=== PATIENT | male | born 1945 | race Two or more races ===

== ENCOUNTER → 2017-08-26 | Outpatient (CLI) | payer OTHER ==
[2017-08-26 09:33] LABS: Basophils # (auto) 0.1 uL; Basophils % (auto) 1.4 % (0.0-2.0); Eosinophils # (auto) 1.3 uL; Eosinophils % (auto) 13.6 % (0.0-7.0); Hematocrit 46.8 % (41.0-53.0); Hemoglobin 16.1 g/dL (13.5-17.5); Lymphocytes # (auto) 1.5 uL; Mean Corpuscular Hemoglobin 33.2 pg (28.0-32.0); Mean Corpuscular Hgb Conc. 34.5 g/dL (32.0-36.0); Mean Corpuscular Volume 96.4 fL (80.0-100.0); Monocytes # (auto) 0.6 uL; Monocytes % (auto) 6.7 % (0.0-12.0); Neutrophils % (auto) 62.3 % (37.0-80.0); Platelet Count (auto) 239 10^3/uL (140-450); Red Blood Cells 4.85 10^6/uL (4.5-5.90); Red Cell Distribution Width 12.7 % (11.8-14.3); White Blood Cell 9.6 10^3/uL (4.4-10.8)
[2017-08-26 09:53] LABS: Urine Bacteria NONE SEEN /hpf (None Seen); Urine Blood Negative /uL (Negative); Urine Specific Gravity 1.007 (1.001-1.035); Urine WBC 1 /hpf (0 - 3)
[2017-08-26 10:01] LABS: Albumin 3.8 g/dL (3.4-5.0); BUN/Creatinine Ratio 13.3; Bilirubin, Total 0.8 mg/dL (0.2-1.0); Calcium 9.1 mg/dL (8.5-10.1); Total Protein 8.1 g/dL (6.4-8.2)
== END | disposition home or self-care (01) ==
LOC: LAB 09:01
PROVIDERS: ATTEND Family Medicine
DX: I10 Essential (primary) hypertension (principal); E11.9 Type 2 diabetes mellitus without complications; E03.9 Hypothyroidism, unspecified; E78.00 Pure hypercholesterolemia, unspecified; E66.01 Morbid (severe) obesity due to excess calories; Z79.4 Long term (current) use of insulin
CPT/HCPCS: 36415; 80053; 80061; 81001; 82043; 82306; 82607; 83036; 84443; 85025

== ENCOUNTER → 2018-06-02 | Outpatient (CLI) | payer OTHER ==
[~2018-06-02] MED LIST: AMLO5TAB13 PO; ASPI81TA27 PO; ATEN100T PO; ATOR10TA52 PO; FURO40TA4 PO; GABA-339 PO; LEVO25TA6 PO
[2018-06-02 11:03] LABS: Basophils # (auto) 0.1 uL; Basophils % (auto) 0.8 % (0.0-2.0); Eosinophils % (auto) 9.2 % (0.0-7.0); Hematocrit 43.5 % (41.0-53.0); Hemoglobin 14.8 g/dL (13.5-17.5); Lymphocytes # (auto) 1.4 uL; Lymphocytes % (auto) 13.7 % (10.0-50.0); Mean Corpuscular Hemoglobin 31.8 pg (28.0-32.0); Mean Corpuscular Hgb Conc. 34.1 g/dL (32.0-36.0); Mean Corpuscular Volume 93.3 fL (80.0-100.0); Monocytes # (auto) 0.7 uL; Monocytes % (auto) 7.1 % (0.0-12.0); Neutrophils # (auto) 7.2 uL; Neutrophils % (auto) 69.2 % (37.0-80.0); Nucleated Red Blood Cells % 0.2 %; Platelet Count (auto) 271 10^3/uL (140-450); Red Blood Cells 4.66 10^6/uL (4.5-5.90); Red Cell Distribution Width 14.3 % (11.8-14.3); White Blood Cell 10.5 10^3/uL (4.4-10.8)
[2018-06-02 11:13] LABS: Urine Bacteria FEW /hpf (None Seen); Urine Blood Negative /uL (Negative); Urine WBC 2 /hpf (0 - 3)
[2018-06-02 11:19] LABS: Albumin 3.3 g/dL (3.4-5.0); Calcium 8.6 mg/dL (8.5-10.1); Potassium 3.6 mmol/L (3.5-5.1)
[2018-06-02 11:25] LABS: BUN/Creatinine Ratio 10.8; Bilirubin, Total 0.6 mg/dL (0.2-1.0); Total Protein 7.4 g/dL (6.4-8.2)
[2018-06-02 13:00] LABS: Folate (Folic Acid) > 24.00 ng/mL (5.38-24)
== END | disposition home or self-care (01) ==
LOC: LAB 10:23
PROVIDERS: ATTEND Internal Medicine
DX: I13.0 Hypertensive heart and chronic kidney disease with heart failure and stage 1 through stage 4 chronic kidney disease, or unspecified chronic kidney disease (principal); E11.22 Type 2 diabetes mellitus with diabetic chronic kidney disease; N18.3 Chronic kidney disease, stage 3 (moderate); E03.9 Hypothyroidism, unspecified
CPT/HCPCS: 36415; 80053; 81001; 82043; 82607; 82746; 83036; 84439; 84443; 85025; 86803

== ENCOUNTER 2018-06-12 06:53 | Emergency (ER) | payer OTHER ==
[~2018-06-12] VITALS: Ht 182.9 cm; Wt 137.0 kg
[2018-06-12 07:34] LABS: Basophils # (auto) 0.1 uL; Basophils % (auto) 0.8 % (0.0-2.0); Eosinophils # (auto) 0.9 uL; Hemoglobin 14.9 g/dL (13.5-17.5); Lymphocytes # (auto) 1.3 uL; Mean Corpuscular Hemoglobin 32.2 pg (28.0-32.0); Mean Corpuscular Hgb Conc. 34.6 g/dL (32.0-36.0); Mean Corpuscular Volume 93.2 fL (80.0-100.0); Monocytes # (auto) 0.8 uL; Monocytes % (auto) 8.4 % (0.0-12.0); Neutrophils # (auto) 6.9 uL; Neutrophils % (auto) 68.8 % (37.0-80.0); Nucleated Red Blood Cells % 0.1 %; Platelet Count (auto) 266 10^3/uL (140-450); Red Blood Cells 4.62 10^6/uL (4.5-5.90); Red Cell Distribution Width 14.6 % (11.8-14.3); White Blood Cell 10.1 10^3/uL (4.4-10.8)
[2018-06-12 07:53] LABS: Albumin 3.3 g/dL (3.4-5.0); Calcium 8.7 mg/dL (8.5-10.1); Potassium 3.9 mmol/L (3.5-5.1)
[2018-06-12 07:58] LABS: BUN/Creatinine Ratio 10.2; Bilirubin, Total 0.6 mg/dL (0.2-1.0); Total Protein 7.4 g/dL (6.4-8.2)
[2018-06-12] MEDS ORDERED: FUROSEMIDE 40 MG/4 ML VIAL IV ONE (08:15)
[2018-06-12 09:07] LABS: Urine Bacteria NONE SEEN /hpf (None Seen); Urine Blood Negative /uL (Negative); Urine Specific Gravity 1.012 (1.001-1.035); Urine WBC 1 /hpf (0 - 3)
[2018-06-12 11:58] VITALS: BP 131/82
== END 2018-06-12 12:09 | disposition home or self-care (01) ==
LOC: ER 06:53
DX: I13.0 Hypertensive heart and chronic kidney disease with heart failure and stage 1 through stage 4 chronic kidney disease, or unspecified chronic kidney disease (principal); E11.22 Type 2 diabetes mellitus with diabetic chronic kidney disease; N18.9 Chronic kidney disease, unspecified; M79.89 Other specified soft tissue disorders; I50.9 Heart failure, unspecified; I25.2 Old myocardial infarction; E78.5 Hyperlipidemia, unspecified; Z86.73 Personal history of transient ischemic attack (TIA), and cerebral infarction without residual deficits; Z98.61 Coronary angioplasty status; Z79.899 Other long term (current) drug therapy
CPT/HCPCS: 36415; 71045; 80053; 81001; 83880; 85025; 93005; 93970; 96374; 99284; J1940

== ENCOUNTER → 2018-07-07 | Outpatient (CLI) | payer OTHER ==
[~2018-07-07] VITALS: Ht 182.9 cm; Wt 134.3 kg
[~2018-07-07] MED LIST changes: +ADENOSINE 113 MG in GIVE UN-DILUTED 0 ML IV ONE; +ADENOSINE 90 MG/30 ML INJ IV ONE
== END | disposition home or self-care (01) ==
LOC: Rad HDHVI 07:33
PROVIDERS: ATTEND Internal Medicine Cardiovascular Disease
DX: I25.119 Atherosclerotic heart disease of native coronary artery with unspecified angina pectoris (principal); E11.59 Type 2 diabetes mellitus with other circulatory complications; E11.21 Type 2 diabetes mellitus with diabetic nephropathy; E11.40 Type 2 diabetes mellitus with diabetic neuropathy, unspecified; E11.65 Type 2 diabetes mellitus with hyperglycemia; I13.0 Hypertensive heart and chronic kidney disease with heart failure and stage 1 through stage 4 chronic kidney disease, or unspecified chronic kidney disease; E11.22 Type 2 diabetes mellitus with diabetic chronic kidney disease; I50.9 Heart failure, unspecified; N18.9 Chronic kidney disease, unspecified
CPT/HCPCS: 78452; 93005; 93306; 96374; 96375; A9500; J0153

== ENCOUNTER → 2018-08-12 | Outpatient (CLI) | payer OTHER ==
[~2018-08-12] MED LIST changes: -ADENOSINE 113 MG in GIVE UN-DILUTED 0 ML IV ONE; -ADENOSINE 90 MG/30 ML INJ IV ONE
[2018-08-12 08:37] LABS: Basophils # (auto) 0.1 uL; Eosinophils # (auto) 1.3 uL; Eosinophils % (auto) 13.9 % (0.0-7.0); Hematocrit 40.8 % (41.0-53.0); Hemoglobin 13.9 g/dL (13.5-17.5); Lymphocytes # (auto) 1.4 uL; Lymphocytes % (auto) 15.2 % (10.0-50.0); Mean Corpuscular Hemoglobin 33.4 pg (28.0-32.0); Mean Corpuscular Volume 98.1 fL (80.0-100.0); Monocytes # (auto) 0.8 uL; Neutrophils # (auto) 5.9 uL; Neutrophils % (auto) 61.9 % (37.0-80.0); Platelet Count (auto) 215 10^3/uL (140-450); Red Blood Cells 4.16 10^6/uL (4.5-5.90); Red Cell Distribution Width 14.5 % (11.8-14.3); White Blood Cell 9.5 10^3/uL (4.4-10.8)
[2018-08-12 08:38] LABS: Albumin 3.4 g/dL (3.4-5.0); BUN/Creatinine Ratio 15.5; Calcium 9.3 mg/dL (8.5-10.1); Potassium 4.5 mmol/L (3.5-5.1)
[2018-08-12 08:42] LABS: Bilirubin, Total 0.5 mg/dL (0.2-1.0); Total Protein 7.5 g/dL (6.4-8.2)
[2018-08-12 08:46] LABS: Free T4 (Free Thyroxine) 1.26 ng/dL (0.89-1.76)
[2018-08-12 08:47] LABS: Folate (Folic Acid) > 24.00 ng/mL (5.38-24)
== END | disposition home or self-care (01) ==
LOC: LAB 07:39
PROVIDERS: ATTEND Internal Medicine
DX: E11.22 Type 2 diabetes mellitus with diabetic chronic kidney disease (principal); I13.0 Hypertensive heart and chronic kidney disease with heart failure and stage 1 through stage 4 chronic kidney disease, or unspecified chronic kidney disease; I50.9 Heart failure, unspecified; N18.9 Chronic kidney disease, unspecified
CPT/HCPCS: 36415; 80053; 80061; 82607; 82746; 83036; 84439; 84443; 85025

== ENCOUNTER → 2018-10-09 | Outpatient (CLI) | payer OTHER ==
[~2018-10-09] MED LIST changes: -AMLO5TAB13 PO; +AMLO5TAB15 PO; +ASPI-404 PO; -ASPI81TA27 PO
[2018-10-09 08:08] LABS: Basophils # (auto) 0.1 uL; Basophils % (auto) 1.3 % (0.0-2.0); Eosinophils # (auto) 1.2 uL; Hematocrit 44.1 % (41.0-53.0); Lymphocytes # (auto) 1.1 uL; Lymphocytes % (auto) 12.3 % (10.0-50.0); Mean Corpuscular Hemoglobin 33.3 pg (28.0-32.0); Mean Corpuscular Volume 97.9 fL (80.0-100.0); Monocytes # (auto) 0.7 uL; Neutrophils # (auto) 5.6 uL; Neutrophils % (auto) 64.4 % (37.0-80.0); Platelet Count (auto) 234 10^3/uL (140-450); Red Cell Distribution Width 13.2 % (11.8-14.3); White Blood Cell 8.7 10^3/uL (4.4-10.8)
[2018-10-09 09:21] LABS: Calcium 9.4 mg/dL (8.5-10.1); Potassium 4.9 mmol/L (3.5-5.1)
[2018-10-09 09:26] LABS: BUN/Creatinine Ratio 17.2
== END | disposition home or self-care (01) ==
LOC: LAB 07:22
PROVIDERS: ATTEND Internal Medicine
DX: I13.0 Hypertensive heart and chronic kidney disease with heart failure and stage 1 through stage 4 chronic kidney disease, or unspecified chronic kidney disease (principal); E11.22 Type 2 diabetes mellitus with diabetic chronic kidney disease; N18.9 Chronic kidney disease, unspecified; I50.9 Heart failure, unspecified
CPT/HCPCS: 36415; 80048; 83036; 85025

== ENCOUNTER → 2018-11-10 | Outpatient (CLI) | payer OTHER ==
[2018-11-10 08:48] LABS: Basophils # (auto) 0.1 uL; Basophils % (auto) 0.9 % (0.0-2.0); Eosinophils # (auto) 1.4 uL; Eosinophils % (auto) 12.5 % (0.0-7.0); Hematocrit 43.6 % (41.0-53.0); Hemoglobin 14.7 g/dL (13.5-17.5); Lymphocytes # (auto) 1.4 uL; Lymphocytes % (auto) 12.9 % (10.0-50.0); Mean Corpuscular Hemoglobin 33.2 pg (28.0-32.0); Mean Corpuscular Hgb Conc. 33.8 g/dL (32.0-36.0); Mean Corpuscular Volume 98.5 fL (80.0-100.0); Monocytes # (auto) 0.8 uL; Monocytes % (auto) 6.8 % (0.0-12.0); Neutrophils # (auto) 7.3 uL; Neutrophils % (auto) 66.9 % (37.0-80.0); Nucleated Red Blood Cells % 0.1 %; Platelet Count (auto) 256 10^3/uL (140-450); Red Blood Cells 4.43 10^6/uL (4.5-5.90); Red Cell Distribution Width 13.6 % (11.8-14.3)
[2018-11-10 08:52] LABS: Urine Blood Negative /uL (Negative); Urine Specific Gravity 1.011 (1.001-1.035)
[2018-11-10 09:41] LABS: Creatinine, Urine 76 mg/dL (30.0-125.0); Protein, Urine 187.2 mg/dL (0.0-11.9)
[2018-11-10 10:46] LABS: Potassium 4.4 mmol/L (3.5-5.1)
[2018-11-10 10:52] LABS: Albumin 3.7 g/dL (3.4-5.0); BUN/Creatinine Ratio 14.1; Calcium 9.6 mg/dL (8.5-10.1)
[2018-11-10 10:53] LABS: Phosphorus 3.8 mg/dL (2.5-4.90); Uric Acid 10.5 mg/dL (3.5-7.2)
[2018-11-11 08:11] LABS: Immunoglobulin G, Serum 1170 mg/dL (700-1600)
== END | disposition home or self-care (01) ==
LOC: LAB 07:06
PROVIDERS: ATTEND Internal Medicine Nephrology
DX: I13.0 Hypertensive heart and chronic kidney disease with heart failure and stage 1 through stage 4 chronic kidney disease, or unspecified chronic kidney disease (principal); E11.22 Type 2 diabetes mellitus with diabetic chronic kidney disease; I50.9 Heart failure, unspecified; D63.1 Anemia in chronic kidney disease; N18.3 Chronic kidney disease, stage 3 (moderate); R80.9 Proteinuria, unspecified; E55.9 Vitamin D deficiency, unspecified; M10.9 Gout, unspecified; N39.0 Urinary tract infection, site not specified; E21.3 Hyperparathyroidism, unspecified
CPT/HCPCS: 36415; 80069; 81003; 82306; 82570; 82784; 83970; 84156; 84550; 85025; 86334; 86335

== ENCOUNTER → 2019-01-11 | Outpatient (CLI) | payer OTHER ==
[2019-01-11 08:17] LABS: Basophils # (auto) 0.1 uL; Basophils % (auto) 0.7 % (0.0-2.0); Eosinophils # (auto) 1.1 uL; Hematocrit 38.2 % (41.0-53.0); Hemoglobin 12.9 g/dL (13.5-17.5); Lymphocytes # (auto) 1.5 uL; Lymphocytes % (auto) 14.1 % (10.0-50.0); Mean Corpuscular Hemoglobin 33.3 pg (28.0-32.0); Mean Corpuscular Hgb Conc. 33.9 g/dL (32.0-36.0); Mean Corpuscular Volume 98.2 fL (80.0-100.0); Monocytes # (auto) 0.8 uL; Monocytes % (auto) 7.4 % (0.0-12.0); Neutrophils # (auto) 7.3 uL; Neutrophils % (auto) 67.8 % (37.0-80.0); Nucleated Red Blood Cells % 0.1 %; Platelet Count (auto) 260 10^3/uL (140-450); Red Blood Cells 3.89 10^6/uL (4.5-5.90); Red Cell Distribution Width 13.8 % (11.8-14.3); White Blood Cell 10.8 10^3/uL (4.4-10.8)
[2019-01-11 08:36] LABS: Albumin 3.4 g/dL (3.4-5.0); BUN/Creatinine Ratio 11.7; Calcium 8.5 mg/dL (8.5-10.1); Potassium 4.3 mmol/L (3.5-5.1)
[2019-01-11 08:39] LABS: Bilirubin, Total 0.6 mg/dL (0.2-1.0); Total Protein 7.6 g/dL (6.4-8.2)
== END | disposition home or self-care (01) ==
LOC: LAB 07:32
PROVIDERS: ATTEND Internal Medicine
DX: I13.0 Hypertensive heart and chronic kidney disease with heart failure and stage 1 through stage 4 chronic kidney disease, or unspecified chronic kidney disease (principal); E11.22 Type 2 diabetes mellitus with diabetic chronic kidney disease; N18.3 Chronic kidney disease, stage 3 (moderate); I50.9 Heart failure, unspecified; Z98.890 Other specified postprocedural states; Z83.3 Family history of diabetes mellitus; Z95.1 Presence of aortocoronary bypass graft
CPT/HCPCS: 36415; 80053; 83036; 84403; 85025

== ENCOUNTER → 2019-03-19 | Outpatient (CLI) | payer OTHER ==
[2019-03-19 08:25] LABS: Basophils # (auto) 0.1 uL; Basophils % (auto) 0.8 % (0.0-2.0); Eosinophils # (auto) 0.9 uL; Eosinophils % (auto) 10.4 % (0.0-7.0); Hematocrit 38.8 % (41.0-53.0); Hemoglobin 13.6 g/dL (13.5-17.5); Lymphocytes # (auto) 1.2 uL; Lymphocytes % (auto) 12.9 % (10.0-50.0); Mean Corpuscular Volume 94.4 fL (80.0-100.0); Monocytes # (auto) 0.6 uL; Monocytes % (auto) 7.1 % (0.0-12.0); Neutrophils # (auto) 6.2 uL; Neutrophils % (auto) 68.8 % (37.0-80.0); Platelet Count (auto) 250 10^3/uL (140-450); Red Blood Cells 4.11 10^6/uL (4.5-5.90); Red Cell Distribution Width 13.5 % (11.8-14.3)
[2019-03-19 08:38] LABS: Urine Blood TRACE /uL (Negative); Urine Specific Gravity 1.011 (1.001-1.035)
[2019-03-19 09:17] LABS: Potassium 4.1 mmol/L (3.5-5.1)
[2019-03-19 09:23] LABS: Creatinine, Urine 80 mg/dL (30.0-125.0)
[2019-03-19 09:25] LABS: Albumin 3.2 g/dL (3.4-5.0); BUN/Creatinine Ratio 8.8; Calcium 8.8 mg/dL (8.5-10.1); Phosphorus 3.6 mg/dL (2.5-4.90); Uric Acid 8.2 mg/dL (3.5-7.2)
[2019-03-19 09:31] LABS: Protein, Urine 561.7 mg/dL (0.0-11.9)
[2019-03-20 08:06] LABS: Immunoglobulin G, Serum 1077 mg/dL (700-1600)
== END | disposition home or self-care (01) ==
LOC: LAB 07:52
PROVIDERS: ATTEND Internal Medicine Nephrology
DX: E55.9 Vitamin D deficiency, unspecified (principal); R80.9 Proteinuria, unspecified; N18.3 Chronic kidney disease, stage 3 (moderate); M10.9 Gout, unspecified; D63.1 Anemia in chronic kidney disease; N39.0 Urinary tract infection, site not specified; E21.3 Hyperparathyroidism, unspecified
CPT/HCPCS: 36415; 80069; 81003; 82306; 82570; 82784; 83970; 84156; 84550; 85025; 86334; 86335

== ENCOUNTER → 2019-04-05 | Outpatient (CLI) | payer OTHER ==
[2019-04-05 11:07] LABS: Basophils # (auto) 0.1 uL; Basophils % (auto) 0.9 % (0.0-2.0); Eosinophils # (auto) 1.1 uL; Eosinophils % (auto) 11.6 % (0.0-7.0); Hematocrit 38.5 % (41.0-53.0); Hemoglobin 13.2 g/dL (13.5-17.5); Lymphocytes # (auto) 1.2 uL; Lymphocytes % (auto) 11.7 % (10.0-50.0); Mean Corpuscular Hemoglobin 32.5 pg (28.0-32.0); Mean Corpuscular Hgb Conc. 34.2 g/dL (32.0-36.0); Monocytes # (auto) 0.7 uL; Neutrophils # (auto) 6.8 uL; Neutrophils % (auto) 68.8 % (37.0-80.0); Platelet Count (auto) 256 10^3/uL (140-450); Red Blood Cells 4.06 10^6/uL (4.5-5.90); Red Cell Distribution Width 13.8 % (11.8-14.3); White Blood Cell 9.9 10^3/uL (4.4-10.8)
[2019-04-05 11:10] LABS: Urine Blood Negative /uL (Negative)
[2019-04-05 11:26] LABS: Creatinine, Urine 60 mg/dL (30.0-125.0)
[2019-04-05 11:27] LABS: Potassium 3.5 mmol/L (3.5-5.1)
[2019-04-05 11:34] LABS: Albumin 3.3 g/dL (3.4-5.0); BUN/Creatinine Ratio 9.9; Calcium 9.1 mg/dL (8.5-10.1); Phosphorus 3.7 mg/dL (2.5-4.90); Uric Acid 9.4 mg/dL (3.5-7.2)
[2019-04-05 11:36] LABS: Protein, Urine 373.7 mg/dL (0.0-11.9)
== END | disposition home or self-care (01) ==
LOC: LAB 09:50
PROVIDERS: ATTEND Internal Medicine Nephrology
DX: E56.9 Vitamin deficiency, unspecified (principal); R80.9 Proteinuria, unspecified; E21.3 Hyperparathyroidism, unspecified; N18.4 Chronic kidney disease, stage 4 (severe); E55.9 Vitamin D deficiency, unspecified; R80.8 Other proteinuria
CPT/HCPCS: 36415; 80069; 81003; 82306; 82570; 83970; 84156; 84550; 85025

== ENCOUNTER → 2019-05-27 | Outpatient (CLI) | payer OTHER ==
[2019-05-27 07:50] LABS: Basophils # (auto) 0.1 10 ^3/uL (0-0.2); Eosinophils # (auto) 0.9 10 ^3/uL (0-0.8); Eosinophils % (auto) 8.7 % (0.0-7.0); Hemoglobin 11.6 g/dL (13.5-17.5); Lymphocytes # (auto) 0.9 10 ^3/uL (0.4-5.4); Lymphocytes % (auto) 9.2 % (10.0-50.0); Mean Corpuscular Hemoglobin 31.9 pg (28.0-32.0); Mean Corpuscular Hgb Conc. 33.2 g/dL (32.0-36.0); Mean Corpuscular Volume 96.1 fL (80.0-100.0); Monocytes # (auto) 0.7 10 ^3/uL (0-1.3); Neutrophils # (auto) 7.6 10 ^3/uL (1.6-8.6); Neutrophils % (auto) 74.1 % (37.0-80.0); Platelet Count (auto) 243 10^3/uL (140-450); Red Blood Cells 3.64 10^6/uL (4.5-5.90); Red Cell Distribution Width 14.1 % (11.8-14.3); White Blood Cell 10.2 10^3/uL (4.4-10.8)
[2019-05-27 08:44] LABS: Albumin 3.1 g/dL (3.4-5.0); Calcium 8.9 mg/dL (8.5-10.1); Potassium 4.3 mmol/L (3.5-5.1)
[2019-05-27 08:50] LABS: BUN/Creatinine Ratio 9.5; Bilirubin, Total 0.6 mg/dL (0.2-1.0); Total Protein 7.3 g/dL (6.4-8.2)
== END | disposition home or self-care (01) ==
LOC: LAB 07:20
PROVIDERS: ATTEND Internal Medicine
DX: E11.22 Type 2 diabetes mellitus with diabetic chronic kidney disease (principal); E03.9 Hypothyroidism, unspecified; I10 Essential (primary) hypertension
CPT/HCPCS: 36415; 80053; 83036; 84439; 84443; 85025

== ENCOUNTER 2019-06-19 13:42 | Inpatient (IN) | payer OTHER ==
[~2019-06-19] VITALS: Ht 188 cm; Wt 123.6 kg
[~2019-06-19 13:42] MED LIST changes: -ASPI-404 PO; +ASPI-543 PO
[2019-06-19] MEDS ORDERED: FUROSEMIDE 20 MG/2 ML VIAL ONE (14:01)
[2019-06-19] MEDS ORDERED: FUROSEMIDE 20 MG/2 ML VIAL IV ONE (14:15)
[2019-06-19 14:17] LABS: Basophils # (auto) 0.1 10 ^3/uL (0-0.2); Basophils % (auto) 1.1 % (0.0-2.0); Eosinophils # (auto) 0.8 10 ^3/uL (0-0.8); Eosinophils % (auto) 8.9 % (0.0-7.0); Hematocrit 28.2 % (41.0-53.0); Hemoglobin 9.4 g/dL (13.5-17.5); Lymphocytes # (auto) 0.6 10 ^3/uL (0.4-5.4); Lymphocytes % (auto) 6.8 % (10.0-50.0); Mean Corpuscular Hemoglobin 32.7 pg (28.0-32.0); Mean Corpuscular Hgb Conc. 33.4 g/dL (32.0-36.0); Mean Corpuscular Volume 98.1 fL (80.0-100.0); Monocytes # (auto) 0.6 10 ^3/uL (0-1.3); Monocytes % (auto) 7.4 % (0.0-12.0); Neutrophils # (auto) 6.6 10 ^3/uL (1.6-8.6); Neutrophils % (auto) 75.8 % (37.0-80.0); Platelet Count (auto) 241 10^3/uL (140-450); Red Blood Cells 2.88 10^6/uL (4.5-5.90); White Blood Cell 8.7 10^3/uL (4.4-10.8)
[2019-06-19 14:22] LABS: Albumin 3.1 g/dL (3.4-5.0); Calcium 8.4 mg/dL (8.5-10.1); Potassium 4.4 mmol/L (3.5-5.1)
[2019-06-19 14:27] LABS: BUN/Creatinine Ratio 11.1; Bilirubin, Total 0.6 mg/dL (0.2-1.0); Total Protein 7.1 g/dL (6.4-8.2)
[2019-06-19 15:09] LABS: INR 1.08 (0.9-1.15); Partial Thromboplastin Time 27.6 sec (23.64-32.05)
[2019-06-19] MEDS ORDERED: cefTRIAXone 1GM/50ML D5W 50 ML IV ONE (15:15)
[2019-06-19] MEDS ORDERED: ZINC SULFATE 220mg CAP or TAB PO ONE (15:15)
[2019-06-19] MEDS ORDERED: ASCORBIC ACID 500 MG TAB PO ONE (15:15)
[2019-06-19] MEDS ORDERED: AZITHROMYCIN 500MG/ 250ML 250 ML IV ONE (15:15)
[2019-06-19] MEDS ORDERED: DEXTROSE (50%) 50ML SYRG IV PRN (17:30)
[2019-06-19] MEDS ORDERED: BUMETANIDE 2.5mg/10ml (0.25 mg/ml) INJ IV ONE ×3 (17:30→23:45)
[2019-06-19] MEDS ORDERED: NITROGLYCERIN 0.4 MG SL TAB SL PRN (17:30)
[2019-06-19] MEDS ORDERED: MORPHINE SULF INJ 2 MG/ML SYRINGE 1ML IV PRN (17:30)
[2019-06-19 17:48] LABS: Uric Acid 11.2 mg/dL (3.5-7.2)
[2019-06-19] MEDS ORDERED: metOLazone 5 MG TAB PO ONE (18:30)
--- NOTE | 2019-06-19 18:40 | NUR ---
Telemetry admit from ER KOBY CLEMENS admitted to Telemetry unit after SBAR received. Patient oriented to Renetta Garcia, primary RN, unit, room, bed, and unit policies regarding patient care and visiting hours. Patient now on continuous telemetry monitoring, tele box # 31 and telemetry reading on arrival to unit is . Patient placed on bedside oxygen, weighed by bedscale and encouraged to call if they need something. All questions and concerns addressed, patient verbalized understanding. Note:
[2019-06-19 18:45] VITALS: BP 144/68
--- NOTE | 2019-06-19 18:45 | NUR ---
ASSESSMENT NOTE PT ARRIVED FROM ER VIA A WHEELCHAIR, ALERT ORIENTED X4, WAS ABLE TO STEP INSIDE HIS BED IN ROOM 204 BY USING HIS OWN CANE, PT IS VERY OBESE, VERY LARGE SOFT ABDOMEN NOTED, BILATERAL FEET WITH 4+ LEFT IS WORSE THAN THE RIGHT, PT STATED THIS IS THE WORSE I EVER EXPERIENCE, THIS TIME I CAN NOT BREATH, IN A POINT I AM USING MY OXYGEN, PT DENIES ANY PREVIOUS FALLS, ROOM ORIENTATION GIVEN TO PT, CALL LIGHT WITHIN REACH, ON FALL RISK PRECAUTIONS, BED ALARM IS ON, NEXT TO THE NURSING STATION, CALL LIGHT WITHIN REACH. REINFORCE TH EPLAN OF CARE WITH PT THAT HE WILL FOLLOW FLUID RESTRICTIONS, PT VERBALIS UNDERSTANDING, AND A NEPHROLOGY CONSULT ON PROCESS, AND WILL BE ON A MEDICATION MANAGEMENT
--- NOTE | 2019-06-19 19:15 | NUR ---
Opening Shift Note Assumed care of patient, awake and alert. No S/S of distress/SOB or pain. Instructed on POC and to call for assist PRN, will continue to monitor for changes Q1hr and PRN. PATIENT SITING UP IN BED, CALL LIGHT IN REACH, BED IN LOWEST POSITION, WITH SIDE RALES UP X2.
--- NOTE | 2019-06-19 19:17 | NUR ---
PT CONTINUE STABLE, CONTINUE MONITORING
[2019-06-19 20:25] VITALS: BP 142/70
[2019-06-19] MEDS: CARVEDILOL 3.125 MG TAB PO SCH (21:58)
[2019-06-19] MEDS: ATORVASTATIN 20 MG TAB PO SCH (21:59)
[2019-06-19] MEDS: ACCU-CHEK COMFORT CURVE STRIP VI SCH (21:59)
[2019-06-19 22:00] VITALS: BP 142/70
[2019-06-19] MEDS: InsuLIN REG 1unit/0.01ml Soln (100units/ml) SC SCH (22:04)
--- NOTE | 2019-06-19 23:34 | NUR ---
PATIENT TEMP LOW ORAL TEMP 94.[address] PAINTER PAGED AND INFORMED OF TEMP AND DIFFICULTY BREATHING.
[2019-06-20] VITALS (7 sets, daily range): BP systolic 137–153; BP diastolic 59–73
[2019-06-20 00:29] LABS: Urine Amorphous Crystal FEW /hpf (None Seen); Urine Bacteria FEW /hpf (None Seen); Urine Blood Negative /uL (Negative); Urine Hyaline Cast MOD /lpf (0 - 2); Urine Specific Gravity 1.008 (1.001-1.035); Urine WBC 2 /hpf (0 - 3)
[2019-06-20 00:53] LABS: Creatinine, Urine 46 mg/dL (30.0-125.0)
[2019-06-20 01:00] LABS: Sodium Urine 89 mmol/L (40-220)
[2019-06-20 05:17] LABS: Basophils # (auto) 0.1 10 ^3/uL (0-0.2); Eosinophils # (auto) 0.5 10 ^3/uL (0-0.8); Eosinophils % (auto) 6.7 % (0.0-7.0); Hematocrit 28.1 % (41.0-53.0); Hemoglobin 9.5 g/dL (13.5-17.5); Lymphocytes # (auto) 0.6 10 ^3/uL (0.4-5.4); Lymphocytes % (auto) 7.2 % (10.0-50.0); Mean Corpuscular Hemoglobin 33.2 pg (28.0-32.0); Mean Corpuscular Hgb Conc. 33.9 g/dL (32.0-36.0); Monocytes # (auto) 0.6 10 ^3/uL (0-1.3); Monocytes % (auto) 7.6 % (0.0-12.0); Neutrophils % (auto) 77.5 % (37.0-80.0); Platelet Count (auto) 233 10^3/uL (140-450); Red Blood Cells 2.86 10^6/uL (4.5-5.90); Red Cell Distribution Width 15.2 % (11.8-14.3); White Blood Cell 7.8 10^3/uL (4.4-10.8)
[2019-06-20 05:32] LABS: INR 1.09 (0.9-1.15); Partial Thromboplastin Time 29.1 sec (23.64-32.05)
[2019-06-20 05:41] LABS: Calcium 8.7 mg/dL (8.5-10.1); Potassium 4.6 mmol/L (3.5-5.1)
[2019-06-20 05:54] LABS: BUN/Creatinine Ratio 11.1; CRP High Sensitivity 1.11 mg/dL (< 0.3); Magnesium 2.8 mg/dL (1.6-2.6)
[2019-06-20] MEDS: BUMETANIDE 2.5mg/10ml (0.25 mg/ml) INJ IV SCH ×2 (06:00→17:54)
[2019-06-20] MEDS ORDERED: BUMETANIDE 2.5mg/10ml (0.25 mg/ml) INJ IV SCH (06:00)
[2019-06-20] MEDS: LEVOTHYROXINE SODIUM 25 MCG TAB PO SCH (06:50)
[2019-06-20] MEDS: ACCU-CHEK COMFORT CURVE STRIP VI SCH ×4 (06:50→23:47)
[2019-06-20] MEDS: InsuLIN REG 1unit/0.01ml Soln (100units/ml) SC SCH ×4 (06:50→22:00)
--- NOTE | 2019-06-20 07:00 | NUR ---
REPORT RECEIVED FROM LADARIUS RN
[2019-06-20] MEDS: amLODIPine BESYLATE 5 MG TAB PO SCH (09:23)
[2019-06-20] MEDS: PANTOPRAZOLE 40 MG TAB PO SCH (09:23)
[2019-06-20] MEDS: CARVEDILOL 3.125 MG TAB PO SCH ×2 (09:24→23:46)
[2019-06-20] MEDS: metOLazone 5 MG TAB PO SCH (09:24)
[2019-06-20] MEDS ORDERED: ALBUMIN 25% 50 ML IV ONE (09:45)
[2019-06-20] MEDS ORDERED: ASPirin-EC 81 mg tab PO SCH (10:00)
[2019-06-20] MEDS: ALBUTEROL SULF 2.5 MG/0.5ML(0.5%) NEB SOLN NEB SCH ×2 (11:13→18:49)
--- NOTE | 2019-06-20 12:22 | NUR ---
ENDORSED CARE TO CESAR RN PATIENT WILL NEED ALBUMIN SILICA SPRAY MIXER IS AWARE.
--- NOTE | 2019-06-20 12:23 | NUR ---
Endorsed care of patient currently in bed, no s/s of distress or SOB noted at this moment. Patient denies any pain. Will continue care.
--- NOTE | 2019-06-20 16:35 | NUR ---
Thoracentesis Dr. Ritter at bedside performing thoracentesis of the right side. Thora fluid collected and sent to lab. 1 L of fluid removed. 1628 baseline VS- HR 68, O2 98%, BP 135/58 1632 post VS- HR 68, O2% 98, B/P 134/60
--- NOTE | 2019-06-20 18:00 | NUR ---
Patient refusing Insulin Patients 1800 accucheck 131. Per patient, his baseline is 180 and he does not take insulin at night when his sugar is below 180 because it causes him to tank. Insulin Held.
[2019-06-20] MEDS ORDERED: OPTISON 3ml Vial for INJ IV ONE (18:02)
[2019-06-20 18:51] LABS: Cholesterol 83 mg/dL (< 200)
[2019-06-20 18:54] LABS: HDL Cholesterol 55 mg/dL (40-59); LDL Cholesterol 25 mg/dL (< 100); Triglycerides 69 mg/dL (< 150)
--- NOTE | 2019-06-20 19:15 | NUR ---
Opening Shift Note Assumed care of patient, eyes closed, respirations even and unlabored, appears asleep. No S/S of distress/SOB or pain. Bed in lowest locked position, side rails up x2, call light within reach. Instructed on POC and to call for assist PRN, will continue to monitor for changes Q1hr and PRN.
--- NOTE | 2019-06-20 19:36 | NUR ---
Daughter's phone number Tia (daughter)
[2019-06-20] MEDS: ATORVASTATIN 20 MG TAB PO SCH (23:46)
[2019-06-21] MEDS: ALBUTEROL SULF 2.5 MG/0.5ML(0.5%) NEB SOLN NEB SCH ×4 (01:08→18:20)
[2019-06-21 05:00] VITALS: BP 161/71
[2019-06-21 05:38] LABS: Basophils # (auto) 0.1 10 ^3/uL (0-0.2); Basophils % (auto) 0.7 % (0.0-2.0); Eosinophils # (auto) 0.7 10 ^3/uL (0-0.8); Eosinophils % (auto) 7.8 % (0.0-7.0); Hematocrit 26.1 % (41.0-53.0); Hemoglobin 8.9 g/dL (13.5-17.5); Lymphocytes # (auto) 0.7 10 ^3/uL (0.4-5.4); Mean Corpuscular Hemoglobin 33.6 pg (28.0-32.0); Mean Corpuscular Hgb Conc. 34.3 g/dL (32.0-36.0); Monocytes # (auto) 0.9 10 ^3/uL (0-1.3); Neutrophils # (auto) 6.3 10 ^3/uL (1.6-8.6); Neutrophils % (auto) 73.5 % (37.0-80.0); Platelet Count (auto) 213 10^3/uL (140-450); Red Blood Cells 2.66 10^6/uL (4.5-5.90); Red Cell Distribution Width 14.6 % (11.8-14.3); White Blood Cell 8.6 10^3/uL (4.4-10.8)
[2019-06-21 05:51] LABS: Potassium 4.3 mmol/L (3.5-5.1)
[2019-06-21 05:57] LABS: BUN/Creatinine Ratio 11.2; Calcium 8.5 mg/dL (8.5-10.1)
[2019-06-21] MEDS: ACCU-CHEK COMFORT CURVE STRIP VI SCH ×4 (06:06→21:34)
[2019-06-21] MEDS: InsuLIN REG 1unit/0.01ml Soln (100units/ml) SC SCH ×4 (06:07→21:35)
--- NOTE | 2019-06-21 06:41 | NUR ---
Respiratory note: PATIENT FOUND ON 5LPM N/C WITH SPO2 OF 99%, FLOW DECREASED TO 2LPM AT THIS TIME. SPO2 MAINTAINED AT 95% AFTER CHANGE.
[2019-06-21] MEDS: BUMETANIDE 2.5mg/10ml (0.25 mg/ml) INJ IV SCH ×2 (06:52→17:37)
[2019-06-21] MEDS: LEVOTHYROXINE SODIUM 25 MCG TAB PO SCH (06:53)
--- NOTE | 2019-06-21 07:13 | NUR ---
Opening shift note Assumed care patient in bed AOx4. No signs or symptoms of distress/SOB/pain noted or reported at this time. Patient updated on POC for the day and to call for assistance as needed. Bed in low position, locked, and call light within reach. Will continue care.
--- NOTE | 2019-06-21 07:15 | NUR ---
Closing Note Patient lying in bed, awake and alert, no s/s of distress. Bed in lowest locked position, side rails up x2, call light within reach. Care endorsed to dayshift RN.
[2019-06-21 09:00] VITALS: BP 168/90
[2019-06-21] MEDS: PANTOPRAZOLE 40 MG TAB PO SCH (09:45)
[2019-06-21] MEDS: amLODIPine BESYLATE 5 MG TAB PO SCH (09:45)
[2019-06-21] MEDS: metOLazone 5 MG TAB PO SCH (09:46)
[2019-06-21] MEDS: CARVEDILOL 3.125 MG TAB PO SCH ×2 (09:46→21:34)
--- NOTE | 2019-06-21 11:30 | NUR ---
Urine collected and sent to lab.
[2019-06-21] MEDS ORDERED: AZITHROMYCIN 250 MG TAB PO ONE (11:45)
[2019-06-21] MEDS ORDERED: CEFTRIAXONE SODIUM 2 GM in D5W 5% 50 ML IV ONE (11:45)
--- NOTE | 2019-06-21 12:00 | NUR ---
Patient refusing Insulin Patients 1200 accucheck 160. Per patient, his baseline is 180 and he does not take insulin when his sugar is below 180 because it causes him to tank. Insulin Held.
[2019-06-21 12:37] LABS: Protein, Urine 120.2 mg/dL (0.0-11.9)
[2019-06-21 12:42] VITALS: BP 153/73
--- NOTE | 2019-06-21 15:30 | NUR ---
Thoracentesis Dr. Ritter at bedside performing left sided thoracentesis. 700 ml of fluid removed from left side. No pneumothorax visible on s/p thoracentesis chest x-ray. Patient tolerated procedure well no s/s of distress or SOB noted during procedure. This RN was at bedside. 1530- Baseline VS- HR 81, O2 94, BP 127/83 1537- HR 77, O2 96, BP 147/674 1545- HR 77, O2 96, BP 128/78
[2019-06-21 17:00] VITALS: BP 182/69
--- NOTE | 2019-06-21 17:30 | NUR ---
Patient refusing Insulin Patients 0 accucheck 151. Per patient, his baseline is 180 and he does not take insulin when his sugar is below 180 because it causes him to tank. Insulin Held.
--- NOTE | 2019-06-21 18:00 | NUR ---
Spoke with daughter Spoke with patients daughter Tia, daughter updated on patients condition and recent procedures. All questions and concerns addressed.
[2019-06-21 20:00] VITALS: BP 140/72
--- NOTE | 2019-06-21 20:00 | NUR ---
Opening Shift Note Assumed care of patient, awake and alert. No S/S of distress/SOB or pain.Blood pressure reassess 140/72. Informed patient if he would turn for this RN to assess his skin to his back. Educated patient on benefits and risks of assessing skin as patient also is status post thoracentesis . patient verbalized refusal and also stated " my back is fine, there is no blood." Reeducated patient. patient refused to turn. Instructed on POC and to call for assist PRN, will continue to monitor for changes Q1hr and PRN. bed in low position call light within reach. bed alarm on.
[2019-06-21] MEDS: ATORVASTATIN 20 MG TAB PO SCH (21:34)
[2019-06-21 22:00] VITALS: BP 148/69
--- NOTE | 2019-06-21 22:04 | NUR ---
Patient refusing Insulin Patients REFUSING INSULIN accucheck 178. Per patient, his baseline is 180 and he does not take insulin when his sugar is below 180 because it causes him to tank. Insulin Held.
[2019-06-22] MEDS: ALBUTEROL SULF 2.5 MG/0.5ML(0.5%) NEB SOLN NEB SCH ×4 (00:26→18:22)
[2019-06-22 05:00] VITALS: BP 155/53
[2019-06-22 05:08] LABS: Basophils # (auto) 0.1 10 ^3/uL (0-0.2); Basophils % (auto) 0.8 % (0.0-2.0); Eosinophils # (auto) 0.6 10 ^3/uL (0-0.8); Eosinophils % (auto) 7.2 % (0.0-7.0); Hematocrit 25.8 % (41.0-53.0); Hemoglobin 8.9 g/dL (13.5-17.5); Lymphocytes # (auto) 0.7 10 ^3/uL (0.4-5.4); Lymphocytes % (auto) 8.1 % (10.0-50.0); Mean Corpuscular Hemoglobin 33.8 pg (28.0-32.0); Mean Corpuscular Hgb Conc. 34.5 g/dL (32.0-36.0); Mean Corpuscular Volume 97.9 fL (80.0-100.0); Monocytes # (auto) 0.7 10 ^3/uL (0-1.3); Monocytes % (auto) 8.7 % (0.0-12.0); Neutrophils # (auto) 6.1 10 ^3/uL (1.6-8.6); Neutrophils % (auto) 75.2 % (37.0-80.0); Platelet Count (auto) 198 10^3/uL (140-450); Red Blood Cells 2.64 10^6/uL (4.5-5.90); Red Cell Distribution Width 15.1 % (11.8-14.3); White Blood Cell 8.1 10^3/uL (4.4-10.8)
[2019-06-22 05:29] LABS: Calcium 8.2 mg/dL (8.5-10.1); Potassium 3.9 mmol/L (3.5-5.1)
[2019-06-22] MEDS: BUMETANIDE 2.5mg/10ml (0.25 mg/ml) INJ IV SCH ×2 (06:03→18:16)
[2019-06-22] MEDS: InsuLIN REG 1unit/0.01ml Soln (100units/ml) SC SCH ×4 (06:32→21:42)
[2019-06-22] MEDS: ACCU-CHEK COMFORT CURVE STRIP VI SCH ×4 (06:32→21:43)
[2019-06-22] MEDS: LEVOTHYROXINE SODIUM 25 MCG TAB PO SCH (06:32)
--- NOTE | 2019-06-22 07:24 | NUR ---
REPORT GIVEN TO DAYSHIFT RN PATIENT DENIES SOB DISTRESS OR PAIN. FALL PRECAUTIONS IN PLACE.
[2019-06-22 09:00] VITALS: BP 153/60
[2019-06-22] MEDS: cefTRIAXone 1GM/50ML D5W 50 ML IV SCH (10:21)
[2019-06-22] MEDS: PANTOPRAZOLE 40 MG TAB PO SCH (10:22)
[2019-06-22] MEDS: AZITHROMYCIN 250 MG TAB PO SCH (10:22)
[2019-06-22] MEDS: CARVEDILOL 3.125 MG TAB PO SCH ×2 (10:23→21:42)
[2019-06-22] MEDS: amLODIPine BESYLATE 5 MG TAB PO SCH (10:24)
[2019-06-22] MEDS: metOLazone 5 MG TAB PO SCH (10:28)
--- NOTE | 2019-06-22 12:57 | NUR ---
NUTRITION ASSESSMENT NOTES Please refer to link notes of nutrition screen form filed under the intervention section of the plan of care for further details. Est. Energy Needs: 6713-9651 kcal ( 14-18 kcal/kg BW). Est. Protein Needs: 58-78 gms/day ( 0.6-0.8 gms/kg Adj.BW). Will continue to monitor pertinent labs and reassess nutrient need prn Addendum: 06/22/19 at [address] Amended: Links added.
[2019-06-22 13:00] VITALS: BP 144/63
[2019-06-22] MEDS ORDERED: ERGOCALCIFEROL 50,000 UNIT(1.25MG) CAP PO SCH (13:00)
--- NOTE | 2019-06-22 14:27 | NUR ---
assessment Patient is a 74 year old male who is alert and oriented. Patients cognitive abilities are intact. Prior to admission patient lived home with family and functioned independently. Patient informed me he is able to care for his own ADLs. Per patient he will return home to his prior living arrangements post discharge and family will transport him home. Patient informed me his PCP is Dr Patel. Patient informed me he has a cane for home use. Patient informed me he was having SOB and called 911. Patient will need to be evaluated by [facility] for home oxygen needs prior to discharge. Patient informed me he has good family support. I informed patient he has a right to speak to a social service technician regarding all care. I informed patient he has a right to participate in any and all discharge planning. Patient has a POA and advanced directive. Patient verbalized understanding and agreed to discharge plan. Addendum: 06/22/19 at 1430 by Leila GORDILLO Amended: Links added.
[2019-06-22 17:00] VITALS: BP 142/70
--- NOTE | 2019-06-22 18:00 | NUR ---
CONTINUES RESTFUL WITH NO COMPLAINTS. HAS TOLERATED MEALS. UPDATES GIVEN TO FAMILY MEMBERS WHO CALL IN DAUGHTER AND . URINE OUTPUT COLOR HAS CHANGED LESS DOREEN. COLOR RESEMBLES MORE OF A YELLOW COLOR. V/S REMAIN WNL.
[2019-06-22] MEDS: CALCIUM ACETATE 667 MG CAP PO SCH ×2 (18:15→18:17)
[2019-06-22] MEDS: ATORVASTATIN 20 MG TAB PO SCH (21:42)
[2019-06-22 22:00] VITALS: BP 151/67
[2019-06-23] MEDS: ALBUTEROL SULF 2.5 MG/0.5ML(0.5%) NEB SOLN NEB SCH ×4 (00:19→18:50)
[2019-06-23 05:00] VITALS: BP 145/76
[2019-06-23 05:21] LABS: Basophils # (auto) 0.1 10 ^3/uL (0-0.2); Basophils % (auto) 0.8 % (0.0-2.0); Eosinophils # (auto) 0.8 10 ^3/uL (0-0.8); Eosinophils % (auto) 8.1 % (0.0-7.0); Hematocrit 26.4 % (41.0-53.0); Hemoglobin 9.1 g/dL (13.5-17.5); Lymphocytes # (auto) 0.7 10 ^3/uL (0.4-5.4); Lymphocytes % (auto) 7.5 % (10.0-50.0); Mean Corpuscular Hemoglobin 33.6 pg (28.0-32.0); Mean Corpuscular Hgb Conc. 34.3 g/dL (32.0-36.0); Monocytes # (auto) 0.8 10 ^3/uL (0-1.3); Monocytes % (auto) 8.3 % (0.0-12.0); Neutrophils # (auto) 7.3 10 ^3/uL (1.6-8.6); Neutrophils % (auto) 75.3 % (37.0-80.0); Platelet Count (auto) 204 10^3/uL (140-450); Red Cell Distribution Width 14.8 % (11.8-14.3); White Blood Cell 9.7 10^3/uL (4.4-10.8)
[2019-06-23 05:40] LABS: Calcium 8.4 mg/dL (8.5-10.1); Potassium 3.8 mmol/L (3.5-5.1)
[2019-06-23 05:42] LABS: BUN/Creatinine Ratio 12.4
[2019-06-23] MEDS: BUMETANIDE 2.5mg/10ml (0.25 mg/ml) INJ IV SCH ×2 (06:50→18:00)
[2019-06-23] MEDS: LEVOTHYROXINE SODIUM 25 MCG TAB PO SCH (06:50)
[2019-06-23] MEDS: ACCU-CHEK COMFORT CURVE STRIP VI SCH ×4 (06:51→22:59)
[2019-06-23] MEDS: InsuLIN REG 1unit/0.01ml Soln (100units/ml) SC SCH ×4 (06:58→22:49)
[2019-06-23 09:00] VITALS: BP 151/75
[2019-06-23] MEDS: CALCIUM ACETATE 667 MG CAP PO SCH ×2 (09:12→18:00)
--- NOTE | 2019-06-23 11:00 | NUR ---
SEEN BY HOSPITALIST AND ART OBJECTS REPAIRER. CONSENTS SIGNED FOR DIALYSIS CATH. STANDBY ASSIST PROVIDED TO BR. SHERWIN OLMOS. BED LINENS CHANGED. DSG CHANGE TO HEPLOCK IV SITE. TO TEST FIXTURE ASSEMBLER FOR PROCEDURE.
[2019-06-23] MEDS ORDERED: LIDOCAINE 2%HCL (LOCAL ANESTH.) INJ 20ML MDV ONE (11:47)
[2019-06-23] MEDS ORDERED: MIDAZOLAM HCL 1MG/1ML-2 ML VIAL ONE (12:19)
[2019-06-23] MEDS ORDERED: fentaNYL CITRATE 100 MCG/2 ML VL ONE (12:19)
[2019-06-23] MEDS ORDERED: HEPARIN SODIUM (PORCINE) 5000 UNITS/ML 1ML VIAL ONE (12:19)
--- NOTE | 2019-06-23 12:19 | NUR ---
Respiratory note: SCHEDULED MED NEB TX NOT GIVEN. PT AT A PROCEDURE.
[2019-06-23 12:44] VITALS: BP 151/75
--- NOTE | 2019-06-23 13:00 | NUR ---
Unable to obtain 1300 vitals . Pt is not in room at this time .
--- NOTE | 2019-06-23 13:00 | NUR ---
DAUGHTER CALLS FULL UPDATE GIVEN.
[2019-06-23] MEDS ORDERED: ONDANSETRON HCL 4 MG/2 ML VIAL ONE (13:46)
[2019-06-23] MEDS ORDERED: ONDANSETRON HCL 4 MG/2 ML VIAL IV ONE (14:00)
--- NOTE | 2019-06-23 14:15 | NUR ---
[facility] CALLS REPORT. SUCCESSFULLY PLACED LEFT UPPER CHEST HD CATH OK TO USE. 156/61 HR 62. 2L NC. O2 SAT 90% MEDICATED WITH ZOFRAN FOR NAUSEA EFFECTIVE RELIEF.
--- NOTE | 2019-06-23 16:20 | NUR ---
D/C Planning Per SS consult for outpatient chair time dialysis. Clinical information was reviewed and approved by [facility]. Faxed Clinical information to [facility] and [facility]. Pending on Hepatitis B results.
[2019-06-23 16:50] VITALS: BP 158/64
[2019-06-23] MEDS: PANTOPRAZOLE 40 MG TAB PO SCH (17:15)
[2019-06-23] MEDS: AZITHROMYCIN 250 MG TAB PO SCH (17:16)
[2019-06-23] MEDS: metOLazone 5 MG TAB PO SCH (17:17)
[2019-06-23] MEDS: amLODIPine BESYLATE 5 MG TAB PO SCH (17:18)
[2019-06-23] MEDS: CARVEDILOL 3.125 MG TAB PO SCH ×2 (17:19→22:58)
[2019-06-23] MEDS: cefTRIAXone 1GM/50ML D5W 50 ML IV SCH (17:37)
--- NOTE | 2019-06-23 19:15 | NUR ---
Opening Shift Note Assumed care of patient, awake and alert. No S/S of distress/SOB or pain. Patient is on 2L NC and stating 94%. Bed is locked in lowest position with call light within reach. Instructed on POC and to call for assist PRN, will continue to monitor for changes Q1hr and PRN.
[2019-06-23 22:00] VITALS: BP 137/68
[2019-06-23] MEDS: ATORVASTATIN 20 MG TAB PO SCH (22:58)
[2019-06-24] MEDS: ALBUTEROL SULF 2.5 MG/0.5ML(0.5%) NEB SOLN NEB SCH ×5 (00:21→23:59)
[2019-06-24 05:00] VITALS: BP 146/61
[2019-06-24 05:06] LABS: Basophils # (auto) 0.1 10 ^3/uL (0-0.2); Basophils % (auto) 0.8 % (0.0-2.0); Eosinophils # (auto) 0.8 10 ^3/uL (0-0.8); Eosinophils % (auto) 6.9 % (0.0-7.0); Hematocrit 26.3 % (41.0-53.0); Hemoglobin 9.1 g/dL (13.5-17.5); Lymphocytes # (auto) 0.5 10 ^3/uL (0.4-5.4); Lymphocytes % (auto) 5.1 % (10.0-50.0); Mean Corpuscular Hemoglobin 33.5 pg (28.0-32.0); Mean Corpuscular Hgb Conc. 34.4 g/dL (32.0-36.0); Mean Corpuscular Volume 97.4 fL (80.0-100.0); Monocytes # (auto) 0.8 10 ^3/uL (0-1.3); Monocytes % (auto) 7.4 % (0.0-12.0); Neutrophils # (auto) 8.7 10 ^3/uL (1.6-8.6); Neutrophils % (auto) 79.8 % (37.0-80.0); Platelet Count (auto) 211 10^3/uL (140-450); Red Cell Distribution Width 14.8 % (11.8-14.3); White Blood Cell 10.9 10^3/uL (4.4-10.8)
[2019-06-24 05:29] LABS: BUN/Creatinine Ratio 12.4; Calcium 8.7 mg/dL (8.5-10.1); Potassium 3.7 mmol/L (3.5-5.1)
[2019-06-24] MEDS: InsuLIN REG 1unit/0.01ml Soln (100units/ml) SC SCH ×4 (06:37→22:00)
[2019-06-24] MEDS: ACCU-CHEK COMFORT CURVE STRIP VI SCH ×4 (06:37→23:00)
[2019-06-24] MEDS: LEVOTHYROXINE SODIUM 25 MCG TAB PO SCH (06:37)
[2019-06-24 08:00] VITALS: BP 153/68
[2019-06-24] MEDS: cefTRIAXone 1GM/50ML D5W 50 ML IV SCH (09:00)
[2019-06-24 09:10] LABS: Hepatitis B Surface Antibody Negative
[2019-06-24 09:43] LABS: Hepatitis A Total Antibody Positive
[2019-06-24 09:57] LABS: Hepatitis B Core Total AB Negative
[2019-06-24 09:58] LABS: Hepatitis B Surface Antigen Negative (Negative); Hepatitis C Antibody Negative (Negative)
[2019-06-24] MEDS: CARVEDILOL 3.125 MG TAB PO SCH (11:00)
[2019-06-24] MEDS: metOLazone 5 MG TAB PO SCH (11:00)
[2019-06-24] MEDS: AZITHROMYCIN 250 MG TAB PO SCH (11:00)
[2019-06-24] MEDS: PANTOPRAZOLE 40 MG TAB PO SCH (11:00)
[2019-06-24] MEDS: amLODIPine BESYLATE 5 MG TAB PO SCH (11:00)
--- NOTE | 2019-06-24 11:18 | NUR ---
I spoke with patient's primary nurse Dorothea and made her aware that for out patient chair time to be arranged, patient will need to have COVID-19 test done. I also made charge nurse Rakesh aware of this yesterday.
[2019-06-24 11:57] VITALS: BP 155/71
--- NOTE | 2019-06-24 14:22 | NUR ---
PT MORE ALERT AND ENGAGING TODAY. DANGLES FEET AT SIDE OF BED. USES CANE. DR. AYANA STEINER, ORDERS DC HOME AFTER HD TODAY. PASSED ON REQUEST FOR COVID TEST TO BE CLEARED FOR CHAIR TIME OUT PATIENT HD. HE REPLIES THAT IT IS NOT NECESSARY AND WILL TAKE CARE OF IT. PRESCRIPTION ON CHART FOR DC. AWAITING HD. CALL AND MESSAGE LEFT WITH DAUGHTER JAXON IN FORMING OF PLANS FOR DC HOME TODAY.
--- NOTE | 2019-06-24 14:49 | NUR ---
HD INITIATED AT 1430 BY HD RN. TOLERATING WELL WITH NO COMPLAINTS.
--- NOTE | 2019-06-24 16:21 | NUR ---
D/C planning Per second SS consult for home oxygen. Clinical information was reviewed and approved by [facility]. Faxed Clinical information to [facility] and [facility] with authorization number. Per Lana with [facility]:) oxygen will be deliver to front lobby between 15:00-17:00. Placed followed up call to Paulina with [facility] at 13:00. Paulina advised me she spoke to patient regarding his 20% Co-Pay. Per Paulina patient agrees to pay the 20% Co-Pay and Carrie will provide with a chair time once patient is clinical clear. Placed call to Carrie with [facility] at 16:00 and left a message. Placed another call at 16:25 to Carrie to get updates regarding chair time. Per Carrie she will follow up with me in the morning with a Chair time. Informed NGUYEN Piedra it is not safe for patient to discharge today due to his chair time not being arrange. Will follow up in the morning with Carrie at [facility].
[2019-06-24 16:51] VITALS: BP 162/85
--- NOTE | 2019-06-24 17:41 | NUR ---
CONTACTED DAUGHTER JAXON. EXPLAINED PLANS FOR DISCHARGE TOMORROW. SHE IS RECIEVING HIM TO HER HOME AND WOULD LIKE INFORMATION ON HOME HEALTH TO OBTAIN A HOSPITAL BED FOR HIM. SHE EXPLAINS THAT PATIENT HAS BEEN THE CAREGIVER FOR HIS PRIOR TO HIS ADMIT TO THE HOSPITAL AND THAT SHE DOESN'T FEEL HE IS CAPABLE OF BEING A CAREGIVER NOW. ANSWERED QUESTIONS ABOUT HEMO DIALYSIS.
[2019-06-24] MEDS: CALCIUM ACETATE 667 MG CAP PO SCH ×2 (18:29→18:30)
[2019-06-24] MEDS: BUMETANIDE 2.5mg/10ml (0.25 mg/ml) INJ IV SCH (18:30)
--- NOTE | 2019-06-24 19:35 | NUR ---
Opening Shift Note Assumed care of patient, awake and alert. No S/S of distress/SOB or pain. Bed is locked in lowest position with call light within reach. Instructed on POC and to call for assist PRN, will continue to monitor for changes Q1hr and PRN.
[2019-06-24] MEDS ORDERED: EPOETIN ALFA 10,000 UNIT/1 ML VIAL IV ONE (21:00)
[2019-06-24 21:48] VITALS: BP 150/70
[2019-06-24] MEDS: ATORVASTATIN 20 MG TAB PO SCH (22:00)
[2019-06-25 04:41] VITALS: BP 152/70
[2019-06-25] MEDS: BUMETANIDE 2.5mg/10ml (0.25 mg/ml) INJ IV SCH (06:00)
[2019-06-25] MEDS: LEVOTHYROXINE SODIUM 25 MCG TAB PO SCH (06:33)
[2019-06-25] MEDS: InsuLIN REG 1unit/0.01ml Soln (100units/ml) SC SCH ×2 (06:33→11:30)
[2019-06-25] MEDS: ACCU-CHEK COMFORT CURVE STRIP VI SCH ×2 (06:33→12:15)
[2019-06-25] MEDS: ALBUTEROL SULF 2.5 MG/0.5ML(0.5%) NEB SOLN NEB SCH ×2 (06:38→11:52)
[2019-06-25 08:00] VITALS: BP 154/77
[2019-06-25 08:15] LABS: Basophils # (auto) 0.1 10 ^3/uL (0-0.2); Basophils % (auto) 0.7 % (0.0-2.0); Eosinophils # (auto) 0.8 10 ^3/uL (0-0.8); Eosinophils % (auto) 8.7 % (0.0-7.0); Hemoglobin 9.3 g/dL (13.5-17.5); Lymphocytes # (auto) 0.7 10 ^3/uL (0.4-5.4); Lymphocytes % (auto) 7.5 % (10.0-50.0); Mean Corpuscular Hemoglobin 33.1 pg (28.0-32.0); Mean Corpuscular Hgb Conc. 34.4 g/dL (32.0-36.0); Mean Corpuscular Volume 96.2 fL (80.0-100.0); Monocytes # (auto) 0.8 10 ^3/uL (0-1.3); Monocytes % (auto) 8.9 % (0.0-12.0); Neutrophils # (auto) 6.7 10 ^3/uL (1.6-8.6); Neutrophils % (auto) 74.2 % (37.0-80.0); Platelet Count (auto) 210 10^3/uL (140-450); Red Blood Cells 2.81 10^6/uL (4.5-5.90); Red Cell Distribution Width 14.4 % (11.8-14.3)
[2019-06-25] MEDS: CALCIUM ACETATE 667 MG CAP PO SCH ×2 (08:32→12:16)
[2019-06-25] MEDS: cefTRIAXone 1GM/50ML D5W 50 ML IV SCH (08:32)
[2019-06-25 08:46] LABS: BUN/Creatinine Ratio 10.2; Calcium 8.4 mg/dL (8.5-10.1); Potassium 3.3 mmol/L (3.5-5.1)
[2019-06-25] MEDS: CARVEDILOL 3.125 MG TAB PO SCH (10:09)
--- NOTE | 2019-06-25 10:27 | NUR ---
DR DAVILA BEDSIDE WITH PATIENT DISCUSSING PLAN OF CARE. ORDERS RECEIVED AND CARRIED OUT
--- NOTE | 2019-06-25 11:20 | NUR ---
Marcial catheter dc'd Order to discontinue marcial catheter. Marcial dc'd with clean technique following deflation of balloon. Patient tolerated well with no complaints of pain. Continue care.
[2019-06-25 12:00] VITALS: BP 151/91
--- NOTE | 2019-06-25 12:40 | NUR ---
PAGED DR SAMAYOA, PATIENTS BP 182/80. AWAITING BP ORDER
--- NOTE | 2019-06-25 12:59 | NUR ---
SPOKE TO DR DAVILA REGARDING BP. ORDER RECEIVED AND CARRIED OUT
[2019-06-25] MEDS ORDERED: amLODIPine BESYLATE 5 MG TAB PO ONE (13:00)
--- NOTE | 2019-06-25 14:00 | NUR ---
INFORMED DR DAVILA OF PATIENT -W- DIALYSIS DAYS. NEXT SCHEDULED DAY IS FRIDAY. DR DAVILA IS OK WITH PATIENT WAITING UNTIL FRIDAY, NO DIALYSIS NECESSARY UNTIL THEN. INFORMED CORRY
--- NOTE | 2019-06-25 14:10 | NUR ---
D/C planning Received followed up called from Carrie with [facility] dialysis advising me patient Chair Time will be Mondays, Wednesdays and Fridays at 18:15 and patient needs to arrived on Friday06/28/2019 at 17:00 for intake paperwork Address: [id number] Ph:). Informed NGUYEN Pendleton regarding Chair time. Per NGUYEN Pendleton patient received dialysis on . Informed NGUYEN Pendleton to notify MD Dr. Vyas if its safe for patient to wait until Friday for dialysis. Per NGUYEN Pendleton doctor stated its okay for patient to received dialysis until Friday.
[2019-06-25 14:26] VITALS: BP 141/74
[2019-06-25 16:47] VITALS: BP 158/68
--- NOTE | 2019-06-25 17:05 | NUR ---
Discharge instructions given as ordered. Provided discharge instructions to patients daughterTia, at [phone] and to patient. Encouraged to follow up with PMD as instructed. Appointment dates and times provided. Informed patient of Dialysis , FridayJune 27 @ 5:00 PM being the first appointment. All questions and concerns addressed. Patient verbalized understanding. Medication reconciliation form completed and copy given to patient. Patient refused needed vaccines. IV removed with catheter intact and pressure dressing applied. Telemetry unit returned to ICU. Patient taken to vehicle via wheelchair with all personal belongings, accompanied by staff member. No distress noted at time of departure.
[2019-06-26] MEDS ORDERED: amLODIPine BESYLATE 5 MG TAB PO SCH (10:00)
== END 2019-06-25 17:05 | disposition home or self-care (01) | DRG 673 ==
LOC: ER 13:42 → EDBD 13:42 → TELE-CENTR 13:43
PROVIDERS: ADMIT Nurse Practitioner Acute Care; ATTEND Internal Medicine
PROC: 0W993ZZ Drainage of Right Pleural Cavity, Percutaneous Approach (ICD-10-PCS; 2019-06-20)
PROC: 0W9B3ZZ Drainage of Left Pleural Cavity, Percutaneous Approach (ICD-10-PCS; 2019-06-21)
PROC: 0JH63XZ Insertion of Tunneled Vascular Access Device into Chest Subcutaneous Tissue and Fascia, Percutaneous Approach (ICD-10-PCS; principal; 2019-06-23)
PROC: 02H633Z Insertion of Infusion Device into Right Atrium, Percutaneous Approach (ICD-10-PCS; 2019-06-23)
PROC: B5181ZA Fluoroscopy of Superior Vena Cava using Low Osmolar Contrast, Guidance (ICD-10-PCS; 2019-06-23)
PROC: B548ZZA Ultrasonography of Superior Vena Cava, Guidance (ICD-10-PCS; 2019-06-23)
DX: N17.0 Acute kidney failure with tubular necrosis (principal); J96.01 Acute respiratory failure with hypoxia; I50.43 Acute on chronic combined systolic (congestive) and diastolic (congestive) heart failure; J18.9 Pneumonia, unspecified organism; I13.2 Hypertensive heart and chronic kidney disease with heart failure and with stage 5 chronic kidney disease, or end stage renal disease; J98.11 Atelectasis; J91.8 Pleural effusion in other conditions classified elsewhere; N18.6 End stage renal disease; E83.39 Other disorders of phosphorus metabolism; E11.21 Type 2 diabetes mellitus with diabetic nephropathy; I25.10 Atherosclerotic heart disease of native coronary artery without angina pectoris; E11.22 Type 2 diabetes mellitus with diabetic chronic kidney disease; E03.9 Hypothyroidism, unspecified; E78.5 Hyperlipidemia, unspecified; D63.1 Anemia in chronic kidney disease; B95.7 Other staphylococcus as the cause of diseases classified elsewhere; E66.01 Morbid (severe) obesity due to excess calories; Z99.2 Dependence on renal dialysis; Z79.899 Other long term (current) drug therapy; I25.2 Old myocardial infarction; Z79.4 Long term (current) use of insulin; Z95.5 Presence of coronary angioplasty implant and graft; Z83.3 Family history of diabetes mellitus; Z82.49 Family history of ischemic heart disease and other diseases of the circulatory system; Z68.35 Body mass index [BMI] 35.0-35.9, adult
CPT/HCPCS: 32555; 36415; 36561; 36600; 71045; 71250; 76604; 76942; 77001; 80048; 80053; 80061; 81001; 82306; 82570; 82728; 82805; 82962; 83036; 83605; 83615; 83735; 83880; 83970; 84100; 84156; 84300; 84443; 84484; 84550; 85025; 85610; 85730; 86141; 86703; 86704; 86706; 86708; 86803; 87040; 87070; 87077; 87186; 87205; 87340; 87804; 87880; 89051; 90935; 93005; 93306; 94640; 96365; 96368; 96375; 97163; 99152; 99153; 99291; G0378; J0696; J0885; J1815; J2250; J2405; J7060; Q9956